=== PATIENT | male | born 1990 | race Caucasian/White ===

== ENCOUNTER 2025-04-25 19:26 | Emergency (ER) | payer SELFPAY ==
[2025-04-25] VITALS (16 sets, daily range): BP systolic 136–159; BP diastolic 99–126; PULSE 71–120; RESP 16–29; TEMP 36.6; O2SAT 96–97
--- NOTE | ~2025-04-25 | XR_ITS ---
XR chest 1V portable Ordering provider: Anuj Cuenca MD History: 34 years Male with . syncope . Comparison: None. FINDINGS: MEDIASTINUM: The cardiac silhouette is not enlarged. LUNGS: No infiltrates, effusions or pneumothorax. OTHER: No free air under the diaphragm. IMPRESSION: No acute cardiopulmonary pathology. Reviewed, dictated and finalized at location A.
--- NOTE | ~2025-04-25 | CT_ITS ---
CT brain wo con Ordering provider: Anuj Cuenca MD History: 34 years Male with . accidental fall, syncope, hit back of head, dizziness . Comparison: None. Technique: CT of the head without contrast. Radiation reduction technique utilized.The dose-length pr oduct was 605.33 mGy-cm. FINDINGS: BRAIN PARENCHYMA AND CSF SPACES: Focal dilatation with fecal No midline shift, mass effect or hemorrh age. The brain parenchyma and CSF spaces are otherwise normal. Empty sella turcica. VISUALIZED PARANASAL SINUSES: Right frontal sinus disease. MASTOIDS: Well aerated. BONES: The bones appear intact. SOFT TISSUES: Visualized nasopharynx is normal. Scalp hematoma in the left occipital area. Otherwise , Superficial soft tissues are normal. IMPRESSION: No acute intracranial findings. Reviewed, dictated and finalized at location A.
--- NOTE | ~2025-04-25 | CT_ITS ---
CT cervical spine wo con Ordering provider: Anuj Cuenca MD History: . accidental fall, syncope, hit back of head, dizziness . Comparison: None. Technique: CT of the cervical spine was performed without contrast. Sagittal and coronal reformatted images were also obtained and reviewed. Automated exposure control and iterative reconstruction johnson hnique were employed. The dose-length product was 605.33 mGy-cm. FINDINGS: VERTEBRAE: No subluxation or acute fracture. The occipital condyles are intact. DISC SPACES: Narrowing of the disc C5-C6. PARASPINOUS SOFT TISSUES: Normal. IMPRESSION: No acute osseous abnormality cervical spine. Reviewed, dictated and finalized at location A.
--- NOTE | 2025-04-25 19:31 | ED_ITS ---
HPI - Syncope General Chief Complaint: Syncope Stated Complaint: syncope Time Seen by Provider: 04/25/25 19:31 Source: patient and EMS Mode of arrival: ambulatory Limitations: no limitations History of Present Illness HPI narrative: 34-year-old male, alcoholic felt -- weird today afternoon after he drank his usual dose of alcohol. He took a shower hoping to improve. -- while in the shower he passed out. Before passing out he felt lightheaded. He fell down and stayed down for an unknown period of time. When he woke up he noted that have his body was hanging out of bathtub. Unsure whether he had any urinary or fecal incontinence. -- He complained of questionable injury to the back of his head and upper neck. -- He has a contusion on the back of his right arm. No chest pain or shortness of breath. No nausea/vomiting /abdominal pain or diarrhea. No dysuria or hematuria No history of seizures or prior history of alcohol withdrawal seizures. No family history of seizures. He has been to an alcohol rehab in the past. MD complaint: loss of consciousness Onset (ago): hour(s) ( 1 hour ago. ) Description of event: other ( unknown whether he had any seizure activity.) Prodromal symptoms: lightheaded Witnessed: No Context: at rest Injuries sustained associated with event: neck, head and RUE Current symptoms: lightheaded Treatments prior to arrival: none Related Data Allergies Allergy/AdvReac Type Severity Reaction Status Date / Time No Known Allergies Allergy Verified 04/25/25 20:17 Review of Systems 2 Review of Systems: All systems reviewed & are unremarkable except as noted in HPI and below Constitutional: Constitutional: Reports as per HPI and Reports no additional constitutional complaints Comments: Patient feels tremulous without any weakness. Eyes: Eyes: Reports as per HPI and Reports no additional eye complaints ENT: Reports system reviewed and no additional complaints, except as documented and Reports as per HPI Cardiovascular: Cardiovascular: Reports as per HPI and Reports no additional cardiovascular complaints Respiratory: Respiratory: Reports as per HPI and Reports no additional respiratory complaints Gastrointestinal: Gastrointestinal: Reports as per HPI and Reports no additional gastrointestinal complaints Genitourinary: Genitourinary: Reports no additional male genitourinary complaints and Reports as per HPI Musculoskeletal: Musculoskeletal: Reports no additional musculoskeletal complaints and Reports as per HPI Integumentary/Breasts: Skin/Breast: Reports system reviewed and no additional complaints, except as docu Comments: Linear contusion measuring 1 cm in to 10 cm on the back of his right arm. Neurologic: Reports system reviewed and no additional complaints, except as documented, Reports as per HPI and Reports dizziness Psychiatric: Psychiatric: Reports no additional psychiatric complaints and Reports as per HPI Endocrine: Endocrine: Reports no additional endocrine complaints and Reports as per HPI Hematologic/Lymphatic: Hematologic/Lymphatic: Reports no additional hematologic/lymphatic complaints and Reports as per HPI Allergic/Immunologic: Allergic/Immunologic: Reports no additional allergic/immunologic complaints and Reports as per HPI [facility] Social History Social History (Updated 04/25/25 @ 19:51 by Anuj Cuenca MD) Social History: smoker Exam 2 Narrative: not orthostatic. Const: General: healthy appearing and no acute distress Nutritional Appearance: well nourished Orientation/consciousness: patient oriented x3 Limitations: no limitations HENMT: Head: normal to inspection Ears: external ears normal F jonathan/Nose/Sinus: Normal external nose present Face and sinus: normal facial exam Mouth: Yes Normal oral and palatal mucosa present Throat: posterior oropharynx normal Eyes: Conjunctivae: conjunctivae normal Pupils: Equal, round and reactive pupils present EOM: EOMs intact bilaterally Direct Ophthalmoscopy: no photophobia Neck: Neck: normal visual inspection, no lymphadenopathy and no meningeal signs Chest: Chest palpation & inspection: normal inspection of the chest Resp: Effort & Inspection: normal respiratory effort Auscultation: clear to auscultation bilaterally Cardio: Rate: regular rate Rhythm: regular rhythm GI: Auscultation: normal bowel sounds Other: No tenderness/rigidity / rebound. : General: Yes no CVA tenderness Back/Spine/Pelvis: Back: no CVA tenderness Skin: General skin exam: normal color Other: Contusion measuring 1 cmx 10 cm on the back of the right hand. Neuro: General: patient oriented x3, moves all extremities, no meningeal signs, no focal motor deficits and CN's II-XI intact bilaterally Cranial nerves: Yes Nystagmus not present Speech: normal speech Gait exam (Neuro): Normal gait present Extrem: General: normal to inspection, no clubbing, cyanosis or edema and no pedal edema Psych: Mental Status: mental status grossly normal Affect: normal affect Attitude: cooperative Course Course Emergency Course: syncope-- negative EKG/ Troponin. cannot rule out alcohol withdrawal seizures alcohol intoxication alcoholic hepatitis accidental fall-- no head neck fracture/dislocation- CT of the head and neck did not show any acute findings right arm contusion Vital Signs Vital signs: Vital Signs Temperature 36.6 C 04/25/25 19:32 Pulse Rate 97 04/25/25 19:32 Respiratory Rate 20 04/25/25 19:32 Blood Pressure 141/106 H 04/25/25 19:32 Pulse Oximetry 96 04/25/25 19:32 Oxygen Delivery Room Air 04/25/25 19:32 Temperature 36.6 C 04/25/25 19:32 Pulse Rate 97 04/25/25 19:32 Respiratory Rate 20 04/25/25 19:32 Blood Pressure 141/106 H 04/25/25 19:32 Pulse Oximetry 96 04/25/25 19:32 Oxygen Delivery Room Air 04/25/25 19:32 MDM - Syncope MDM Narrative Medical decision making narrative: syncopal spell questionable seizures alcohol intoxication alcoholic hepatitis Differential Diagnosis Differential diagnosis: Likely vasovagal syncope Lab Data Attestation: I reviewed the patient's lab results. 04/25/25 19:51 04/25/25 19:51 Labs: Lab Results 04/25/25 04/25/25 Range/Units 19:51 20:29 WBC 8.2 (4.8-10.8) K/mm3 RBC 5.51 (4.70-6.10) M/mm3 Hgb 17.3 (14.0-18.0) g/dL Hct 49.9 (40.0-54.0) % MCV 90.6 (78.0-102.0) fL MCH 31.4 H (27.0-31.0) pg MCHC 34.7 (32-36) g/dL RDW 13.2 (11.6-14.4) % Plt Count 266 (150-420) K/mm3 MPV 10.4 (8.7-11.0) fl Immature Gran % (Auto) 0.6 H (0.0-0.0) % Neut % (Auto) 56.3 (50.0-70.0) % Lymph % (Auto) 31.2 (18.0-42.0) % Boyd % (Auto) 9.0 (2.0-11.0) % Eos % (Auto) 1.3 (1.0-6.0) % Baso % (Auto) 1.6 H (0.0-1.0) % Lymph # (Auto) 2.56 (1.10-4.50) K/mm3 Boyd # (Auto) 0.74 (0.10-0.90) K/mm3 Eos # (Auto) 0.11 (0.02-0.50) K/mm3 Baso # (Auto) 0.13 H (0.00-0.10) K/mm3 Abs Immat Gran (auto) 0.05 H (0.00-0.00) K/mm3 Absolute Neuts (auto) 4.61 (1.70-7.20) K/mm3 Absolute Nucleated RBC 0.00 (0.00-0.00) K/mm3 Nucleated RBC % 0.0 (0-0.0) % Sodium 142 (137-145) mmol/L Potassium 3.7 (3.4-5.0) mmol/L Chloride 109 H (98-107) mmol/L Carbon Dioxide 20 L (22-30) mmol/L Anion Gap 13 H (4-12) mmol/L BUN 6 L (9-20) mg/dL Creatinine 1.00 (0.7-1.3) mg/dL Estim Creat Clear Calc 124 ml/min Estimated GFR > 60 (59 - ) Glucose 109 (65-110) mg/dL Calculated Osmolality 292 (285-295) mOsm/kg Lactic Acid 2.5 H (0.4-2.0) mmol/L Calcium 9.0 (8.4-10.2) mg/dL Phosphorus 2.9 (2.5-4.5) mg/dL Magnesium 1.7 (1.6-2.3) mg/dL Total Bilirubin 0.6 (0.2-1.3) mg/dL AST 269 H (17-59) U/L ALT 213 H (6-50) U/L Alkaline Phosphatase 95 (38-126) U/L Troponin I < 0.012 (0.000-0.034) ng/mL Total Protein 8.0 (6.3-8.2) g/dL Albumin 4.7 (3.5-5.1) g/dL Lipase 114 (23-300) U/L Urine Color Yellow (Yellow) Urine Appearance Clear (Clear) Urine pH 6.0 (5.0-8.0) Ur Specific Ailey >= 1.030 H (1.010-1.020) Urine Protein 1+ H (Negative) Urine Glucose (UA) Negative (Negative) Urine Ketones Trace H (Negative) Ur Blood (Man) Negative (Negative) Urine Nitrate Negative (Negative) Urine Bilirubin 1+ H (Negative) Urine Urobilinogen 1.0 (0.2-1.0) mg/dL Leukocyte Esterase Rfl Negative (Negative) MEGHA/UL Urine RBC 0-2 (0-2) /hpf Urine WBC 0-3 (0-3) /hpf Ur Squamous Epith Cells Rare (Few) /hpf Other Sediment Spermatazoa H (None) /hpf Urine Bacteria Trace (None) /hpf Urine Mucus Moderate H /lpf Urine Opiates Screen Negative (Negative) Urine Methadone Screen Negative (Negative) Acetaminophen < 10 L (10-30) ug/mL Ur Barbiturates Screen Negative (Negative) Ur Phencyclidine Scrn Negative (Negative) Ur Amphetamine Screen Negative (Negative) U Benzodiazepines Scrn Negative (Negative) Urine Cocaine Screen Negative (Negative) U Cannabinoids Screen Positive A (Negative) Ethyl Alcohol 127 (<10) mg/dL ECG Data EKG #1: ECG completion date: 04/25/25 ECG completion time: 20:26 Interpretation: sinus tachycardia with a heart rate of 103. Normal axis. Poor R-wave progression in anterior leads. Prominent Q-waves in inferior leads suggestive of an old anterior/inferior infarction. No ST elevation. Discharge Plan Discharge Clinical Impression: Alcohol intoxication Qualifiers: Complication of substance-induced condition: with unspecified complication Q ualified Code(s): F10.929 - Alcohol use, unspecified with intoxication, unspecified Syncope Qualifiers: Syncope type: unspecified Qualified Code(s): R55 - Syncope and collapse Alcoholic hepatitis Qualifiers: Ascites presence: without ascites Qualified Code(s): K70.10 - Alcoholic hepatitis without ascites Patient Disposition: Home Condition: Stable Instructions: Antibiotic Form Patient Language: Malawian Prescriptions: New thiamine HCl (vitamin B1) 100 mg tablet 100 mg PO DAILY Qty: 30 0RF multivitamin Tablet 1 tablet PO DAILY Qty: 30 0RF Follow-up/Referrals: UNKNOWN,DOCTOR [Non-Staff] - Time of Disposition: 21:59
--- NOTE | 2025-04-25 19:42 | ECG_ITS ---
Test Date: 2025-04-25 20:26:58 Measurements Intervals [place] Rate: 103 P: 68 RI: 145 QRS: -11 QRSD: 110 T: 0 QT: 348 QTc: 457 Interpretive Statements SINUS TACHYCARDIA POOR R-WAVE PROGRESSION No previous ECG available for comparison Electronically Signed On 04-26-2025 15:19:50 CDT by Obed Garcia M.D.
[2025-04-25 20:00] LABS: Basophils Absolute Auto 0.13 K/mm3 (0.00-0.10); Basophils Percent Auto 1.6 % (0.0-1.0); Eosinophils Absolute Auto 0.11 K/mm3 (0.02-0.50); Eosinophils Percent Auto 1.3 % (1.0-6.0); Hematocrit 49.9 % (40.0-54.0); Hemoglobin 17.3 g/dL (14.0-18.0); Immature Granulocyte Absolute 0.05 K/mm3 (0.00-0.00); Immature Granulocyte Percent A 0.6 % (0.0-0.0); Lymphocytes Absolute Auto 2.56 K/mm3 (1.10-4.50); Lymphocytes Percent Auto 31.2 % (18.0-42.0); Mean Corpuscular HGB Conc 34.7 g/dL (32-36); Mean Corpuscular Hemoglobin 31.4 pg (27.0-31.0); Mean Corpuscular Volume 90.6 fL (78.0-102.0); Mean Platelet Volume 10.4 fl (8.7-11.0); Monocytes Absolute Auto 0.74 K/mm3 (0.10-0.90); Neutrophils Absolute Auto 4.61 K/mm3 (1.70-7.20); Neutrophils Percent Auto 56.3 % (50.0-70.0); Platelet Count Result 266 K/mm3 (150-420); Red Blood Count 5.51 M/mm3 (4.70-6.10); Red Cell Distribution Width 13.2 % (11.6-14.4); White Blood Count 8.2 K/mm3 (4.8-10.8)
[2025-04-25 20:13] LABS: Acetaminophen < 10 ug/mL (10-30); Ethanol 127 mg/dL (<10); Lactic Acid Reflex 2.5 mmol/L (0.4-2.0)
[2025-04-25] MEDS: ONDANSETRON INJ 4 MG/2 ML VIAL IV PUSH (20:19)
[2025-04-25 20:30] LABS: Chloride 109 mmol/L (98-107); Potassium 3.7 mmol/L (3.4-5.0); Sodium 142 mmol/L (137-145)
[2025-04-25 20:31] LABS: Anion Gap 13 mmol/L (4-12); Aspartate Amino Transferase 269 U/L (17-59); Bilirubin,Total 0.6 mg/dL (0.2-1.3); Blood Urea Nitrogen 6 mg/dL (9-20); Carbon Dioxide 20 mmol/L (22-30); Estimated CRCL calculation 124 ml/min; Estimated Glomerular Filt Rate > 60; Glucose 109 mg/dL (65-110); Magnesium 1.7 mg/dL (1.6-2.3); Osmolality Calculated 292 mOsm/kg (285-295); Phosphorus 2.9 mg/dL (2.5-4.5)
[2025-04-25 20:32] LABS: Alanine Aminotransferase 213 U/L (6-50); Albumin Level 4.7 g/dL (3.5-5.1); Alkaline Phosphatase 95 U/L (38-126); Lipase 114 U/L (23-300); Troponin I < 0.012 ng/mL (0.000-0.034)
[2025-04-25] MEDS: THIAMINE HCL INJ 100 MG, FOLIC ACID 1 MG, MULTIVITAMINS-12 INJ 10 ML, MAGNESIUM SULFATE... IV CONT (20:38)
[2025-04-25 20:41] LABS: Add Urine Microscopic? YES; Appearance Urine Clear (Clear); Bilirubin Urine 1+ (Negative); Blood Urine Negative (Negative); Color Urine Yellow (Yellow); Glucose Urine UA Negative (Negative); Ketones Urine Trace (Negative); Leukocyte Esterase Ur Negative LEU/UL (Negative); Nitrate Urine Negative (Negative); Protein Urine 1+ (Negative); Specific Grav Ur >= 1.030 (1.010-1.020)
[2025-04-25 20:47] LABS: Bacteria Urine Trace /hpf; Mucus Urine Moderate /lpf; RBC Urine 0-2 /hpf (0-2); Squamous Epithelial Cell Urine Rare /hpf (Few); WBC Urine 0-3 /hpf (0-3)
[2025-04-25 20:48] LABS: Other Sediment Urine Spermatazoa /hpf
[2025-04-25 21:00] LABS: Amphetamine Screen Urine Negative (Negative); Barbiturate Screen Urine Negative (Negative); Benzodiazepines Screen Urine Negative (Negative); Cannabinoid Screen Urine Positive (Negative); Cocaine Screen Urine Negative (Negative); Methadone Screen Urine Negative (Negative); Opiate Screen Urine Negative (Negative); Phencyclidine Screen Urine Negative (Negative)
--- OUTSIDE RECORDS SUMMARY | 2025-04-25 21:05 | XMS_ITS | Continuity of Care Document ---
Author Organization [facility] Address [address] [place] [address] Phone Care Team Providers Care Wheel Cutter Name Role Phone Unavailable Unavailable Unavailable Procedures Procedure Date OFFICE CONSULT, 15 MIN, 3 KE Y COMPS: PROB FOCUS HX; PROB FOCUS EXAM; STRTFWD OFFICE CONSULT, 15 MIN, 3 KE Y COMPS: PROB FOCUS HX; PROB FOCUS EXAM; STRTFWD OFFICE CONSULT, 15 MIN, 3 KE Y COMPS: PROB FOCUS HX; PROB FOCUS EXAM; STRTFWD OFFICE O/P EST 5 MIN Advance Directives Directive Yes / No Effective Date File Name No Information Encounters Encounter Description Practice Location Reason(s) For Visit Diagnoses Date Provider Providers Copied on Encounter OFFICE CONSULT, 15 MIN, 3 HERNANDEZ COMPS: PROB FOCUS HX; [facility]OB [facility] , [address], [place], [place], [address], [place] tel:[phone] Aneta Marcial Conversion ADJUSTMENT REACTION NOS 2200 6 No Information OFFICE CONSULT, 15 MIN, 3 HERNANDEZ COMPS: PROB FOCUS HX; PROB FOCUS EXAM; [facility] , [address], [place], [place], [address], [place] tel:[phone] Aneta Marcial Conversion ADJUSTMENT REACTION NOS 7-200 6 No Information OFFICE CONSULT, 15 MIN, 3 HERNANDEZ COMPS: PROB FOCUS HX; [facility]OB [facility]OC[facility] EXAM; [facility] , [address], [place], [place], [address], [place] tel:[phone] Aneta Marcial Conversion ADJUSTMENT REACTION NOS 0-200 6 No Information OFFICE O/P EST 5 MIN [facility] , [address], [place], [place], [address], [place] tel:[phone] Aneta Marcial Conversion ISSUE REPEAT PRESCRIPT No Information Family History Family Member Type Diagnosis Age At Onset No Information Payers Payer name Insurance type Covered constitution party ID Authoriza tion(s) No Information Social History Type Description Quantity Date Captured Comments Sex Male Smoking Status No Information Chief Complaint And Reason For Visit No Information Reason For Referral Reason For Referral No Information History Of Present Illness Encounter Date Complaint History Of Prese nt Illness No Information Functional Status Date Functional Assessmen t No Information Instructions Date Instruction Additional Infor mation No Information Assessments Type Assessment Date No Information Patient Care Teams Name Effective Dates (start - stop) Status Members No Information
--- OUTSIDE RECORDS SUMMARY | 2025-04-25 21:05 | XMS_ITS | Continuity of Care Document ---
Author Organization [facility] Address [address] [place] [address] Phone Care Team Providers Care Salesperson Furniture Name Role Phone Earnest Ge DO Unavailable Unavailable Allergies, Adverse Reactions, Alerts Substance Reaction Status Criticality No Known Allergies Active No Inform ation Medications Medication Instructions Dosage Effective Dates (start - stop) Status Comments hydrocodone 5 mg-acetaminophen 325 mg tablet - No Longer Active Procedures Procedure Date POSTOP FOLLOW-UP VISIT RADEX FNGR MINIMUM 2 VIEWS RADEX FNGR MINIMUM 2 VIEWS OFFICE/OUTPATIENT VISIT NEW Advance Directives Directive Yes / No Effective Date File Name No Information Encounters Encounter Description Practice Location Reason(s) For Visit Diagnoses Date Provider Providers Copied on Encounter [facility], [address], [place], [address], [place] tel:[phone] [facility] No Information [address] Luma Tinoco . [address], [place], [place], [address] , [place]. tel: [phone] [facility], [address], [place], [address], [place] tel:[phone] [facility] Closed nondisplaced fracture of proximal phalanx of left thumb with routine healing, subsequent encounterLacerati on of left thumb without foreign body without damage to nail, subsequent encounter 4 Luma Tinoco . [address], [place], [place], [address] , [place]. tel:[phone] OFFICE/OUTPA TIENT VISIT NEW [facility], [address], [place], [address], [place] tel:[phone] [facility] Body mass index [BMI] 32.0-32.9, adultLaceration of left thumb without foreign body without damage to nail, initial encounterClosed nondisplaced fracture of proximal phalanx of left thumb, initial encounter 4 Luma Ordoñezael . [address], [place], [place], [address] , [place]. tel: [phone] Family History Family Member Type Diagnosis Age At Onset Father Problem (finding) Father Problem Family history unknown Payers Payer name Insurance type Covered republican ID victor manuel lira(s) [facility] Choice Plus Level Funded OT [id number] Social History Type Description Quantity Date Captured Comments Alcohol Use Details Unknown Caffeine Use Details Unknown Tobacco Use Status Smoking Status No Information Sex Male Chief Complaint And Reason For Visit No Information Reason For Referral Reason For Referral No Information Plan Of Treatment Date Type Action Status Goal Tobacco cessation counseling completed Goal Lifestyle education regardin g diet completed Referral Ordered: RADEX FNGR MINIMUM 2 VIEWS LT ordered History Of Present Illness Encounter Date Complaint History Of Prese nt Illness No Information Functional Status Date Functional Assessmen t No Information Instructions Date Instruction Additional Infor mation Lifestyle education regarding di et Related to Body mass index [BMI] 32.0-32.9, adult Assessments Type Assessment Date No Information Patient Care Teams Name Effective Dates (start - stop) Status Members No Information
--- OUTSIDE RECORDS SUMMARY | 2025-04-25 21:05 | XMS_ITS | Clinical Summary ---
Author Organization [facility] Address [address] [place] [address] Care Team Providers Care Money Market Dealer Name Role Phone Unavailable Primary Care Provider Unavailabl e Source Comments [facility],non-owned Affiliates and Associated Physician Practices is amultiple site organization consisting of ambulatory clinics and hospital sitesin [place], [place], [place] and [place]. This disclosure is being madepursuant to the Care Everywhere program and may not contain all information available regarding this patient. Last updated 18.[employer] [facility] Allergies No known active allergies Medications * This document contains information received from the source organization and may not represent a complete record from that organization. * Be aware that medications may not be up to date on this document. Alwaysverify current medications with the patient. 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 Gender Identity Not on file Sexual Orientation Not on file Last Filed Vital Signs Vital Sign Reading Time Taken Comments Blood Pressure 141/88 12/08/2020 4:03 PM ENDODONTICS DENTIST Pulse 64 12/08/2020 4:03 PM ENDODONTICS DENTIST Temperature 36.4 C (97.5 F) 12/08/2020 4:03 PM ENDODONTICS DENTIST Respiratory Rate 18 12/08/2020 4:03 PM ENDODONTICS DENTIST Oxygen Saturation 98% 12/08/2020 4:03 PM ENDODONTICS DENTIST Inhaled Oxygen Concentration - - Weight 113.4 kg (250 lb) 12/08/2020 4:03 PM ENDODONTICS DENTIST Height 190.5 cm (6' 3) 12/08/2020 4:03 PM ENDODONTICS DENTIST Body Mass Index 31.25 12/08/2020 4:03 PM ENDODONTICS DENTIST Plan of Treatment Health Maintenance Due Date Last Done Comments HIV SCREENING 2006 HEPATITIS C SCREENING 05/25/2009 DTAP/TDAP/TD VACCINES (1 - Tdap) 2010 HEPATITIS B VACCINE (1 of 3 - 19+ 3-dose series) 2010 COVID-19 VACCINE (1 - 2023-2 5 season) 2024 DEPRESSION SCREENING 11/29/2024 INFLUENZA VACCINE (Season Ended) 2025 ZOSTER VACCINE (1 of 2) 2041 HIB VACCINE Aged Out No longer eligi ble based on patient's age to complete this topic HPV VACCINE Aged Out No longer eligi ble based on patient's age to complete this topic MENINGOCOCCAL (Group B) VACC INE SHARED DECISION-MAKING Aged Out No longer eligibl e based on patient's age to complete this topic MENINGOCOCCAL GROUPS A/C/Y/W VACCINE Aged Out No longer eligible b ased on patient's age to complete this topic PNEUMOCOCCAL VACCINE Aged Out No long er eligible based on patient's age to complete this topic Insurance [employer]
[2025-04-25] MEDS: THIAMINE HCL 100 MG TABLET PO (21:09)
--- NOTE | 2025-04-25 21:45 | PC.NURSE ---
This RN spoke with patient extensively on trying to quit drinking. This RN spoke with MAGNOLIA from [facility] at [facility]. Patient is to call in the morning for intake meeting and then appt is set up for wednesday for hopefully inpatient med stabilization. Patient was given a couple other local resources as well. Patient verbalized understanding and is open to help at this time.
[2025-04-25 21:57] LABS: Reflex Lactic Acid Yes or No Add Lactic
== END 2025-04-25 22:20 | disposition home or self-care (01) ==
PROVIDERS: Emergency Provider Internal Medicine Critical Care Medicine; PCP Internal Medicine
DX: F10.929 Alcohol use, unspecified with intoxication, unspecified (principal); R55 Syncope and collapse; K70.10 Alcoholic hepatitis without ascites
CPT/HCPCS: 36415; 70450; 71045; 72125; 80053; 80143; 80307; 81001; 82077; 83605; 83690; 83735; 84100; 84484; 85025; 93005; 96365; 96366; 96375; 99284; A9270; J2405; J3411; J3475; J7120